=== PATIENT | male | born 1950 | race Caucasian/White ===

== ENCOUNTER → 2024-04-11 10:02 | Outpatient (REF) | payer MEDICARE, SELFPAY | LOC: RCS 10:02 | PROVIDERS: ATTENDING PHYSICIAN Internal Medicine Cardiovascular Disease; FAMILY PHYSICIAN Family Medicine | DX: I49.01 Ventricular fibrillation (principal); Z95.1 Presence of aortocoronary bypass graft; I50.20 Unspecified systolic (congestive) heart failure | CPT/HCPCS: 93306 ==

== ENCOUNTER → 2025-04-03 10:10 | Outpatient (REF) | payer MEDICARE, SELFPAY | LOC: RCS 10:10 | PROVIDERS: ATTENDING PHYSICIAN Internal Medicine Cardiovascular Disease; FAMILY PHYSICIAN Family Medicine | DX: I50.20 Unspecified systolic (congestive) heart failure (principal) | CPT/HCPCS: 93306 ==